=== PATIENT | female | born 1945 | race African-American/Black ===

== ENCOUNTER 2018-02-24 09:49 | Emergency (ER) | payer OTHER ==
[~2018-02-24] VITALS: Ht 170.2 cm; Wt 81.8 kg
[~2018-02-24 09:49] MED LIST: HYDR25TA PO
[2018-02-24 11:08] VITALS: BP 153/71
== END 2018-02-24 11:20 | disposition home or self-care (01) ==
LOC: EMS 09:50
DX: I10 Essential (primary) hypertension (principal); Z76.0 Encounter for issue of repeat prescription
CPT/HCPCS: 99283

== ENCOUNTER 2022-05-11 10:22 | Inpatient (IN) | payer MEDICARE ==
[~2022-05-11] VITALS: Ht 162.6 cm; Wt 67.8 kg
[2022-05-11] MEDS ORDERED: IOHEXOL 350 MG/ML 100 ML VIAL ONE (10:38)
[2022-05-11] MEDS ORDERED: SODIUM CHLORIDE 0.9% 100 ML ONE (10:38)
[2022-05-11 10:58] LABS: BASOPHILS % (AUTO) 0.6 % (0.0-2.0); EOSINOPHILS % (AUTO) 0.8 % (1.0-6.0); HEMATOCRIT 43.2 % (36-46); HEMOGLOBIN 14.3 g/dL (12.0-16.0); LYMPHOCYTES # (AUTO) 0.8 K/uL (1.0-4.8); LYMPHOCYTES % (AUTO) 13.8 % (22.0-44.0); MEAN CORPUSCULAR HEMOGLOBIN 32.1 pg (26.0-34.0); MEAN CORPUSCULAR VOLUME 97 fL (80-100); MONOCYTES # (AUTO) 0.5 K/uL (0.1-1.0); MONOCYTES % (AUTO) 7.5 % (2.0-9.0); NEUTROPHILS # (AUTO) 4.6 K/uL (1.8-7.7); NEUTROPHILS % (AUTO) 77.3 % (40.0-70.0); PLATELET COUNT (AUTO) 207 K/uL (150-450); RED BLOOD CELL COUNT(AUTO) 4.45 MIL/uL (4.00-5.20); RED CELL DISTRIBUTION WIDTH 13.2 % (11.5-14.5)
[2022-05-11 11:07] LABS: CALCIUM, TOTAL 9.6 mg/dL (8.8-10.5); CREATININE 1.39 mg/dL (0.60-1.30); POTASSIUM 3.6 mmol/L (3.5-5.1)
[2022-05-11 11:12] LABS: ALBUMIN 3.7 g/dL (3.4-5.0); BILIRUBIN,TOTAL 0.7 mg/dL (0.1-1.0); TOTAL PROTEIN, SERUM 7.9 g/dL (6.4-8.2)
[2022-05-11 11:14] LABS: INR 1.1 (0.9-1.1); PROTHROMBIN TIME 11.9 SEC (9.4-11.6)
[2022-05-11] MEDS ORDERED: CLOPIDOGREL BISULFATE 75 MG TABLET PO ONE (11:45)
[2022-05-11] MEDS ORDERED: ASPIRIN 81 MG CHEWABLE TABLET PO ONE ×2 (11:45→14:30)
[2022-05-11] MEDS ORDERED: ZOLPIDEM TARTRATE 5 MG TABLET PO PRN (14:30)
[2022-05-11] MEDS ORDERED: MAGNESIUM HYDROXIDE SUSPENSION 30 ML UDCUP PO PRN (14:30)
[2022-05-11] MEDS ORDERED: BISACODYL 10 MG RECTAL RECTAL SUPPOSITORY PR PRN (14:30)
[2022-05-11] MEDS ORDERED: ACETAMINOPHEN 325 MG TABLET PO PRN (14:30)
[2022-05-11] MEDS ORDERED: MORPHINE SULFATE 2 MG/ML SYRINGE IVP PRN (14:30)
[2022-05-11] MEDS ORDERED: LORazepam 1 MG TABLET PO ONE (14:30)
[2022-05-11] MEDS ORDERED: ONDANSETRON HCL 4 MG/2 ML VIAL IVP PRN (14:30)
[2022-05-11] MEDS ORDERED: HYDROCODONE/ACETAMINOPHEN 5-325 MG TABLET PO PRN (14:30)
[2022-05-11 14:35] LABS: APPEARANCE,URINE CLEAR (CLEAR); BILIRUBIN,URINE NEGATIVE (NEGATIVE); GLUCOSE, URINE (UA) NEGATIVE (NEGATIVE); KETONES,URINE NEGATIVE (NEGATIVE); LEUKOCYTE ESTERASE ,URINE NEGATIVE (NEGATIVE); NITRATE,URINE NEGATIVE (NEGATIVE); OCCULT BLOOD,URINE MODERATE (NEGATIVE); PH,URINE 6.5 (5.0-8.0); PROTEIN,URINE 30-70 mg/dL (NEGATIVE); UROBILINOGEN,URINE <=1.0 mg/dL (<=1.0)
[2022-05-11 14:42] LABS: AMPHET/METH SCREEN,URINE NEGATIVE (NEGATIVE); BARBITURATE SCREEN, URINE NEGATIVE (NEGATIVE); BENZODIAZEPINES SCREEN,URINE NEGATIVE (NEGATIVE); CANNABINOID SCREEN,URINE NEGATIVE (NEGATIVE); COCAINE SCREEN,URINE NEGATIVE (NEGATIVE); METHADONE SCREEN, URINE NEGATIVE (NEGATIVE); OPIATE SCREEN,URINE NEGATIVE (NEGATIVE)
[2022-05-11 14:43] LABS: PHENCYCLIDINE SCREEN,URINE NEGATIVE (NEGATIVE)
[2022-05-11 15:18] LABS: SPECIFIC GRAVITIY, URINE > 1.050 (1.003-1.030)
[2022-05-11 15:36] LABS: BACTERIA,URINE None Seen /HPF (None Seen); SQUAMOUS EPITHELIAL CELL,UR Few /LPF (None Seen); WBC,URINE 0-2 /HPF (0-5)
[2022-05-11] MEDS: HEPARIN SODIUM,PORCINE 5,000 UNITS/ML VIAL SQ SCH (16:20)
[2022-05-11 20:22] LABS: COVID AG,FIA SOURCE NASAL SWAB
[2022-05-11 20:30] VITALS: BP 135/87
[2022-05-11] MEDS: DOCUSATE SODIUM 100 MG CAPSULE PO SCH (21:50)
[2022-05-11] MEDS: ATORVASTATIN CALCIUM 20 MG TABLET PO SCH (21:50)
[2022-05-11 23:45] VITALS: BP 132/77
[2022-05-11] MEDS ORDERED: DONE10TA43 PO (23:49)
[2022-05-11] MEDS ORDERED: ESCI-8 PO (23:50)
[2022-05-11] MEDS ORDERED: ATOR10TA PO (23:53)
[2022-05-11] MEDS ORDERED: AMLO-257 PO (23:53)
[2022-05-11] MEDS ORDERED: HYDR25TA2 PO (23:53)
[2022-05-12] MEDS: HEPARIN SODIUM,PORCINE 5,000 UNITS/ML VIAL SQ SCH ×3 (00:42→16:30)
[2022-05-12 03:45] VITALS: BP 140/69
[2022-05-12] MEDS ORDERED: INFLUENZA VIRUS VACCINE QVS 2022-23 (6MO+)/PF 60 MCG/0.5 ML SYRINGE IM. ONE (03:45)
[2022-05-12 05:29] LABS: BASOPHILS % (AUTO) 1.2 % (0.0-2.0); EOSINOPHILS % (AUTO) 2.2 % (1.0-6.0); HEMATOCRIT 44.8 % (36-46); LYMPHOCYTES # (AUTO) 1.3 K/uL (1.0-4.8); LYMPHOCYTES % (AUTO) 24.9 % (22.0-44.0); MEAN CORPUSCULAR HEMOGLOBIN 32.4 pg (26.0-34.0); MEAN CORPUSCULAR HGB CONC 33.5 G/dL (31.0-37.0); MEAN CORPUSCULAR VOLUME 97 fL (80-100); MONOCYTES # (AUTO) 0.5 K/uL (0.1-1.0); MONOCYTES % (AUTO) 10.7 % (2.0-9.0); NEUTROPHILS # (AUTO) 3.1 K/uL (1.8-7.7); PLATELET COUNT (AUTO) 218 K/uL (150-450); RED BLOOD CELL COUNT(AUTO) 4.62 MIL/uL (4.00-5.20); RED CELL DISTRIBUTION WIDTH 13.4 % (11.5-14.5)
[2022-05-12 05:45] LABS: CALCIUM, TOTAL 9.6 mg/dL (8.8-10.5); CHOL/HDL RATIO 2.1 (3.9-5.7); CREATININE 1.12 mg/dL (0.60-1.30); POTASSIUM 3.6 mmol/L (3.5-5.1)
[2022-05-12 06:06] LABS: THYROID STIMULATING HORMONE 1.38 uIU/mL (0.36-3.74)
[2022-05-12 07:35] VITALS: BP 137/75
[2022-05-12] MEDS ORDERED: GADOTERATE MEGLUMINE 10 MMOL/20 ML VIAL IVP ONE (08:34)
[2022-05-12] MEDS: DOCUSATE SODIUM 100 MG CAPSULE PO SCH ×2 (08:54→20:37)
[2022-05-12] MEDS: PANTOPRAZOLE SODIUM 40 MG DR TABLET PO SCH (08:54)
[2022-05-12] MEDS: CLOPIDOGREL BISULFATE 75 MG TABLET PO SCH (08:54)
[2022-05-12 11:36] VITALS: BP 104/52
[2022-05-12 15:52] VITALS: BP 108/74
[2022-05-12 19:49] VITALS: BP 111/57
[2022-05-12] MEDS: ATORVASTATIN CALCIUM 20 MG TABLET PO SCH (20:37)
[2022-05-13 00:43] VITALS: BP 99/56
[2022-05-13 04:09] VITALS: BP 124/55
[2022-05-13 07:11] LABS: CALCIUM, TOTAL 9.8 mg/dL (8.8-10.5); CREATININE 1.75 mg/dL (0.60-1.30); POTASSIUM 3.9 mmol/L (3.5-5.1)
[2022-05-13 07:14] LABS: BASOPHILS % (AUTO) 0.7 % (0.0-2.0); HEMATOCRIT 46.6 % (36-46); HEMOGLOBIN 15.6 g/dL (12.0-16.0); LYMPHOCYTES % (AUTO) 33.7 % (22.0-44.0); MEAN CORPUSCULAR HEMOGLOBIN 32.6 pg (26.0-34.0); MEAN CORPUSCULAR HGB CONC 33.5 G/dL (31.0-37.0); MEAN CORPUSCULAR VOLUME 97 fL (80-100); MONOCYTES # (AUTO) 0.3 K/uL (0.1-1.0); MONOCYTES % (AUTO) 5.6 % (2.0-9.0); NEUTROPHILS # (AUTO) 3.5 K/uL (1.8-7.7); PLATELET COUNT (AUTO) 224 K/uL (150-450); RED BLOOD CELL COUNT(AUTO) 4.78 MIL/uL (4.00-5.20); RED CELL DISTRIBUTION WIDTH 13.5 % (11.5-14.5)
[2022-05-13 07:20] VITALS: BP 106/60
[2022-05-13] MEDS: CLOPIDOGREL BISULFATE 75 MG TABLET PO SCH (08:25)
[2022-05-13] MEDS: PANTOPRAZOLE SODIUM 40 MG DR TABLET PO SCH (08:25)
[2022-05-13] MEDS: HEPARIN SODIUM,PORCINE 5,000 UNITS/ML VIAL SQ SCH ×2 (08:25)
[2022-05-13] MEDS: DOCUSATE SODIUM 100 MG CAPSULE PO SCH (08:26)
[2022-05-13] MEDS ORDERED: ASPI-1444 PO (11:27)
== END 2022-05-13 14:10 | disposition home or self-care (01) | DRG 69 ==
LOC: EMS 10:26 → 5S 14:52
PROVIDERS: ADMIT Internal Medicine; ATTEND Internal Medicine
DX: G45.9 Transient cerebral ischemic attack, unspecified (principal); E44.0 Moderate protein-calorie malnutrition; E78.5 Hyperlipidemia, unspecified; G30.9 Alzheimer's disease, unspecified; I12.9 Hypertensive chronic kidney disease with stage 1 through stage 4 chronic kidney disease, or unspecified chronic kidney disease; N18.2 Chronic kidney disease, stage 2 (mild); Z20.822 Contact with and (suspected) exposure to COVID-19; F02.80 Dementia in other diseases classified elsewhere, unspecified severity, without behavioral disturbance, psychotic disturbance, mood disturbance, and anxiety; R29.810 Facial weakness; Z79.02 Long term (current) use of antithrombotics/antiplatelets; Z79.899 Other long term (current) drug therapy; Z79.82 Long term (current) use of aspirin; Z68.25 Body mass index [BMI] 25.0-25.9, adult
CPT/HCPCS: 70496; 70498; 70553; 71045; 80048; 80053; 80061; 81001; 82948; 84443; 84484; 85025; 85610; 85730; 86850; 86900; 86901; 92610; 93005; 93306; 93880; 99285; J1644; J7050; Q9967; 36415-L1; 36415-TC; 70450; 70450-TC